=== PATIENT | female | born 1985 | race Caucasian/White ===

== ENCOUNTER 2020-08-26 14:29 | Inpatient (IN) ==
[2020-08-26] MEDS ORDERED: LACTATED RINGER'S 1,000 ML IV SCH ×3 (15:30→18:30)
--- NOTE | 2020-08-26 15:35 | History & Physical Report ---
Date of Service August 26, 2020 Assessment & Plan (1) premature rupture of membranes, onset of labor within 24 hours of rupture, third trimester: History of Present Illness Chief Complaint: SROM at 35.5 weeks Primary Care Provider: DAVE PCP 34 F P1001 at 35.5 weeks seen on L&D for SROM while at work today. Patient with history of prior for breech 2013. uncomplicated to date and she was planning a repeat . Allergies Allergy/AdvReac Type Severity Reaction Status Date / Time No Known Allergies Allergy Unverified 04/28/14 07:21 Home Medications Medication Instructions Recorded Confirmed Type LEVOTHYROXINE SODIUM (SYNTHROID) 100 mcg PO DAILY #0 tab 04/26/14 History Multivit/Min/Iron/Fol Ac/Pren 1 tab PO DAILY #0 tab 04/26/14 History ( Vitamin) Ibuprofen 600 mg PO Q4H PRN #30 tab 04/29/14 Rx Patient History Medical History Hypothyroid Surgical History Previous section Social History Smoking Status: Never smoker Hx Alcohol Use: No Hx Substance Use: No marital status: Feels Safe at Home: Yes Safety Concerns: Feels Safe At This Time OB History prior Dr. Maravilla 2013 Review of Systems All systems reviewed & are unremarkable except as noted in HPI & below Physical Exam Constitutional: WD/WN, vitals as above well developed and comfortable Eyes: PERRL, conjunctivae normal, anicteric sclerae Respiratory: normal respiratory effort, lungs clear to auscultation Cardiovascular: RRR, no murmur, no edema Rate/Rhythm: regular rate Gastrointestinal (Abdomen): Inspection/Auscultation: abdomen normal to inspection and + abdominal surgical scar Musculoskeletal: Head/Neck/Chest: normocephalic Gait: normal gait Neurologic: patellar DTR's 2+ bilat, sensation intact Psychiatric: A+Ox3, euthymic affect Genitourinary: normal external appearance Speculum/Bimanual Exam: + uterus enlarged OB Exam Abdomen: + fundal height (term and non-tender) and + heart tones Manual OB Exam: + cervical dilation fingertip, + cervical effacement 50%, + station high and + amniotic fluid clear, nitrazine positive and ferning present OB Exam Monitor Tracing: + external FHT monitor used, + external uterine monitor used, + category I and + normal FHT variability Sterile speculum done Results & Data ([facility]) Vital Signs (Past 12 Hours) Vital Signs Temp Pulse Resp BP 08/26/20 14:42 36.6 C 75 20 134/96 08/26/20 14:37 75 134/96 Code Status & VTE Plan VTE Prophylaxis Plan VTE Prophylaxis will be ordered: No
[2020-08-26] MEDS ORDERED: ONDANSETRON INJ 2 MG/ML 2 ML VIAL ONE ×2 (15:51→17:09)
[2020-08-26] MEDS ORDERED: OXYTOCIN 10 UNITS/ML VIAL ONE ×2 (15:51→16:29)
[2020-08-26] MEDS ORDERED: MoRPHine SULFATE PF 1 MG/ML 10 ML AMP/VIAL ONE (15:51)
[2020-08-26] MEDS ORDERED: PHENYLEPHRINE 100MCG/ML 5ML SYR ONE (15:51)
[2020-08-26] MEDS ORDERED: ePHEDrine sulfate 50 MG/ML SYR ONE (15:51)
[2020-08-26] MEDS ORDERED: MoRPHine SULFATE PF 1 MG/ML 10 ML AMP/VIAL INT SPINAL ONE (15:51)
[2020-08-26 15:52] LABS: Basophils # (auto) 0.01 K/uL (0-0.2); Basophils % (auto) 0.1 %; Eosinophils # (auto) 0.14 K/uL (0-0.5); Eosinophils % (auto) 1.4 %; Hematocrit (blood only) 32.9 % (37-47); Hemoglobin 11.5 g/dL (12.0-16.0); Immature Granulocytes # (auto) 0.02 K/uL (0.00-0.02); Immature Granulocytes % (auto) 0.2 %; Lymphocytes # (auto) 1.68 K/uL (1.2-3.4); Lymphocytes % (auto) 16.5 %; Mean Corpuscular Hemoglobin 31.9 pg (25-34); Mean Corpuscular Volume 91.4 fL (80-100); Monocytes # (auto) 0.66 K/uL (0.11-0.59); Monocytes % (auto) 6.5 %; Neutrophils % (auto) 75.3 %; Platelet Count 260 K/uL (130-400); RDW Coefficient of Variation 13.5 % (11.5-14.5); RDW Standard Deviation 44.3 fL (36.4-46.3); White Blood Count 10.21 K/uL (4.8-10.8)
--- NOTE | 2020-08-26 16:08 | Anesthesiology Consultation ---
Date of Service August 26, 2020 Assessment & Plan (1) Encounter for pre-operative examination: Chart Review Chart Review: Acceptable Risk for Surgery and Patient NOT seen in Pre Admission Testing Consults Requested none ASA ASA2 Proposed Anesthesia Risk / Benefits Reviewed With: PT / POA / Parent / Guardian, Accepts Plan and Informed Consent Obtained History Surgery Operation Date: 08/26/20 15:35 Proposed Procedures p Section in LD - Justen Medina MD Height/Weight Height: 5 ft 8 in Weight: 100.698 kg Allergies Allergy/AdvReac Type Severity Reaction Status Date / Time No Known Allergies Allergy Unverified 04/28/14 07:21 Medications Home Medications Medication Instructions Recorded Confirmed Last Taken LEVOTHYROXINE SODIUM (SYNTHROID) 100 mcg PO DAILY #0 tab 04/26/14 Unknown Multivit/Min/Iron/Fol Ac/Pren 1 tab PO DAILY #0 tab 04/26/14 Unknown ( Vitamin) Ibuprofen 600 mg PO Q4H PRN #30 tab 04/29/14 Unknown NPO Date Last Intake of Fluids: 08/26/20 Time Last Intake of Fluids: 13:30 Date Last Intake of Solids: 08/26/20 Time Last Intake of Solids: 13:30 Past Medical History Medical History Hypothyroid Exercise / Class Metabolic Activity II 4-5 Yardwork/Stairs/Walk up hill Past Surgical History Surgical History Previous section Past Anesthesia History No Hx of Anesthesia Complications and No Family Hx of Anesthesia Complications History of PONV No Hx of PONV and No Hx of Motion Sickness Social History Smoking Status: Never smoker Hx Alcohol Use: No Hx Substance Use: No substance use type: does not use Physical Exam Vital Signs Last Vital Signs Temp 36.6 C 08/26/20 14:42 Pulse 75 08/26/20 14:42 Resp 20 08/26/20 14:42 BP 134/96 08/26/20 14:42 ENMT Mouth: no dentition abnormality Thyromental Distance: > or= 3.5 Finger Breadths Mallampati Class: II Neck normal visual inspection Respiratory normal respiratory effort Auscultation: lungs clear to auscultation bilaterally Cardiovascular Rate/Rhythm: regular rate and regular rhythm Psychiatric Orientation: alert Testing Laboratory Results 08/26/20 15:41
[2020-08-26] MEDS ORDERED: fentaNYL citrate 100 MCG/2 ML VIAL ONE (16:29)
[2020-08-26] MEDS ORDERED: KETOROLAC 30 MG/ML VIAL ONE (16:29)
[2020-08-26] MEDS ORDERED: CITRIC ACID/SODIUM CITRATE 15 ML UDC ONE (16:34)
--- NOTE | 2020-08-26 18:24 | Post Operative Brief Note ---
Immediate Post Op Note v1 Date of Surgery August 26, 2020 Pre & Post Diagnosis Operation Date: 08/26/20 15:35 Pre-Op Diagnosis: spontaneous rupture of membranes. 35.5 weeks gestation. Repeat section. In labor. Post-Op Diagnosis: Same. I identified the patient and participated in the time-out.: Yes Procedure Operation Date: 08/26/20 15:35 Actual Procedures p Section in LD (OR#3) with of live female at 1725 - Justen Medina MD Surgeon Justen Medina MD Medical Surgical Tech RADHA Buck Estimated Blood Loss 400 Findings Consistent with Post-Op Diagnosis live male Apgars 8/9 weight pending Fluids 2000 ml. Specimens placenta Drains Alfaro Catheter Anesthesia Type Spinal Complications none Disposition Accompanied Patient To Recovery: Yes Disposition: L&D Overlapping Procedure I was present for: the critical portions of procedure. I was immediately available: during the entire case. Back up surgeon: was not required during procedure.
[2020-08-26] MEDS ORDERED: diphenhydrAMINE Capsule 25 MG CAP PO PRN (18:30)
[2020-08-26] MEDS ORDERED: SENNA 8.6 MG TAB PO PRN (18:30)
[2020-08-26] MEDS ORDERED: SUPERCREAM 0.870% 15 GM JAR EXT PRN (18:30)
[2020-08-26] MEDS ORDERED: diphenhydrAMINE 50 MG/ML VIAL IV PRN (18:30)
[2020-08-26] MEDS ORDERED: PROMETHAZINE HCL 25 MG in SODIUM CHLORIDE 0.9% 50 ML IV PRN (18:30)
[2020-08-26] MEDS ORDERED: BENZOCAINE 20% AER SPR 82.5 GM CAN EXT PRN (18:30)
[2020-08-26] MEDS ORDERED: HYDROCORTISONE ACETATE 25 MG SUPP PR PRN (18:30)
[2020-08-26] MEDS ORDERED: DIPHTHERIA/TETANUS/PERTUSSIS 0.5 ML SYR/VIAL IM ONE (18:30)
[2020-08-26] MEDS ORDERED: ONDANSETRON INJ 2 MG/ML 2 ML VIAL IV PRN (18:30)
[2020-08-26] MEDS ORDERED: MAGNESIUM HYDROXIDE SUSP 30 ML UDC PO PRN (18:30)
--- NOTE | 2020-08-26 18:35 | Anesthesiology Progress Note ---
Date of Service August 26, 2020 Anesthesia Post Procedure Vital Signs Vital Signs: Temp Pulse Resp BP Pulse Ox 08/26/20 18:27 76 99 08/26/20 18:25 101 H 94 08/26/20 18:22 73 113/67 100 08/26/20 18:20 18 08/26/20 18:17 73 99 08/26/20 18:13 82 108/64 08/26/20 18:12 75 99 08/26/20 18:10 36.5 C 20 08/26/20 14:42 36.6 C 75 20 134/96 08/26/20 14:37 75 134/96 Transfer of Care Handoff Completed per policy Notes Mental Status: alert / awake / arousable Nausea / Vomiting: adequately controlled Pain: adequately controlled Airway Patency, RR, SpO2: stable & adequate BP & HR: stable & adequate Hydration State: stable & adequate Neuraxial Anesthesia: was administered and sensory block is resolving Anesthetic Complications: no major complications apparent
[2020-08-26] MEDS: OXYTOCIN 30 UNITS in LACTATED RINGER'S 1,000 ML IV SCH (19:04)
--- NOTE | 2020-08-26 20:23 | Operative Report (OR) ---
DATE OF OPERATION: 08/26/2020 PREOPERATIVE DIAGNOSES: rupture of membranes at 35 weeks and 5 days with repeat section, in labor. POSTOPERATIVE DIAGNOSES: rupture of membranes at 35 weeks and 5 days with repeat section, in labor. PROCEDURE: Repeat section, low segment, transverse. SURGEON: Justen Medina MD. MINE SAFETY ENGINEER: RADHA Fry. ANESTHESIA: Spinal with Duramorph. CLINICAL HISTORY: The patient is a 34-year-old female, para 1-0-0-1, at 35.5 weeks who ruptured membranes with clear fluid confirmed by Nitrazine and ferning. section was then planned and then scheduled. Consents were signed and timeout was called prior to the start of the procedure. DESCRIPTION OF PROCEDURE: Under satisfactory spinal anesthesia, the patient was prepped and draped in the usual sterile fashion. A low Pfannenstiel incision through a prior scar was then made, carrying this down into the abdominal layers in successive layers without difficulty. Upon entering into the lower uterine segment, pickups with teeth and Metzenbaums were used to develop a bladder flap. A low segment transverse incision over the lower uterine segment was made. The incision was nicked. Amniotic fluid was noted to be clear. The incision was widened in the AP diameter. The was then delivered with the aid of fundal pressure from the vertex presentation without difficulty. The cord was doubly clamped and cut after a 1-minute delay delivering a male, Apgars 8 and 9, weight pending. Cord blood was obtained. Placenta then delivered spontaneously and intact. Uterus was then exteriorized. Ring forceps were then placed on both angles in the inferior margin. Another ring used to dilate the cervix. Uterus was closed in a double layer closure starting with 0 Vicryl suture in a continuous interlocking fashion followed by second imbricating suture. Uterus was firm. The initial sponge, needle, and instrument count were found to be correct. The tubes and ovaries bilaterally were found to be within normal limits. There was a small posterior 1 cm fibroid on the left hand side. The uterus being placed back into the normal anatomical position, was firm. The lower uterine incision was then inspected and found to be intact with no bleeding. The fascia was then reapproximated from both ends using 0 Vicryl suture in a continuous fashion. Subcuticular space was irrigated. Bleeders were cauterized. Subcuticular layer was closed with 3-0 plain suture. The incision was then irrigated and the skin was then closed with rolando. Clear urine was noted from the Alfaro 500 mL. EBL 400 mL. Total fluids 2000 mL. The sponge, needle and instrument counts being correct, the patient was then placed supine on a stretcher. She was taken to recovery room in stable condition. I was present for the entire case. No backup surgeon was needed. I attest to the content of the Intraoperative Record and any orders documented therein. Any exception s are noted below.
[2020-08-26] MEDS: SIMETHICONE 80 MG CHEW PO SCH (22:01)
[2020-08-26] MEDS: DOCUSATE SODIUM 100 MG CAP PO SCH (22:08)
[2020-08-27] MEDS: OXYTOCIN 30 UNITS in LACTATED RINGER'S 1,000 ML IV SCH (02:55)
[2020-08-27] MEDS ORDERED: ceFAZolin 2000MG 2,000 MG/15 ML SYR IV SCH (06:00)
[2020-08-27] MEDS ORDERED: CITRIC ACID/SODIUM CITRATE 15 ML UDC PO SCH (06:00)
[2020-08-27] MEDS: LEVOTHYROXINE SODIUM 137 MCG TABLET PO SCH (06:22)
[2020-08-27 06:48] LABS: Basophils # (auto) 0.02 K/uL (0-0.2); Basophils % (auto) 0.2 %; Eosinophils # (auto) 0.14 K/uL (0-0.5); Eosinophils % (auto) 1.3 %; Hematocrit (blood only) 32.4 % (37-47); Hemoglobin 10.8 g/dL (12.0-16.0); Immature Granulocytes # (auto) 0.02 K/uL (0.00-0.02); Immature Granulocytes % (auto) 0.2 %; Lymphocytes # (auto) 1.43 K/uL (1.2-3.4); Lymphocytes % (auto) 13.5 %; Mean Corpuscular Hgb Conc 33.3 g/dL (32-36); Mean Corpuscular Volume 93.1 fL (80-100); Mean Platelet Volume 9.8 fL (7.4-10.4); Monocytes # (auto) 0.52 K/uL (0.11-0.59); Monocytes % (auto) 4.9 %; Neutrophils # (auto) 8.43 K/uL (1.4-6.5); Neutrophils % (auto) 79.9 %; Platelet Count 208 K/uL (130-400); RDW Coefficient of Variation 13.6 % (11.5-14.5); RDW Standard Deviation 45.2 fL (36.4-46.3); Red Blood Count 3.48 M/uL (4.2-5.4); White Blood Count 10.56 K/uL (4.8-10.8)
--- NOTE | 2020-08-27 07:49 | Obstetrical Progress Note ---
Date of Service August 27, 2020 Assessment & Plan Admission and Anticipated Discharge Date Admission Date: August 26, 2020 Subjective Patient is seen and examined. She feels well, no complaints. Pain is under control with meds. Not OOB yet No dizziness in bed Voiding without difficulty Tolerating regular diet with out N&V Flatus + BM none Bleeding is minimal No fever/ chills/ CP/ SOB/ N&V/ Leg pain Plans to breast feed, baby is in nursery Vital Signs Temp Pulse Pulse Resp BP BP Pulse Ox 08/27/20 06:00 16 99 08/27/20 05:00 18 97 08/27/20 04:00 16 98 08/27/20 03:15 36.6 C 78 18 135/87 98 08/27/20 03:00 16 98 08/27/20 02:00 16 97 08/27/20 01:30 18 100 08/27/20 01:00 16 98 08/27/20 00:00 16 100 08/26/20 23:18 36.6 C 74 18 123/82 08/26/20 23:00 16 99 08/26/20 22:00 16 99 08/26/20 21:00 36.6 C 75 18 126/87 97 08/26/20 20:49 77 98 08/26/20 20:44 73 98 08/26/20 20:43 75 126/87 08/26/20 20:39 62 98 08/26/20 20:34 72 99 08/26/20 20:29 69 97 08/26/20 20:24 68 100 08/26/20 20:19 72 100 08/26/20 20:11 36.6 C 69 18 124/86 08/26/20 20:07 64 100 08/26/20 20:02 68 100 08/26/20 20:00 66 93 08/26/20 19:57 73 99 08/26/20 19:52 75 100 Lab Results 08/26/20 08/26/20 08/26/20 Range/Units 15:25 15:25 15:41 WBC 10.21 (4.8-10.8) K/uL RBC 3.60 L (4.2-5.4) M/uL Hgb 11.5 L (12.0-16.0) g/dL Hct 32.9 L (37-47) % MCV 91.4 (80-100) fL MCH 31.9 (25-34) pg MCHC 35.0 (32-36) g/dL RDW Std Deviation 44.3 (36.4-46.3) fL RDW Coeff of Nura 13.5 (11.5-14.5) % Plt Count 260 (130-400) K/uL MPV 10.0 (7.4-10.4) fL Immature Gran % (Auto) 0.2 % Neut % (Auto) 75.3 % Lymph % (Auto) 16.5 % [place] % (Auto) 6.5 % Eos % (Auto) 1.4 % Baso % (Auto) 0.1 % Neut # (Auto) 7.70 H (1.4-6.5) K/uL Lymph # (Auto) 1.68 (1.2-3.4) K/uL [place] # (Auto) 0.66 H (0.11-0.59) K/uL Eos # (Auto) 0.14 (0-0.5) K/uL Baso # (Auto) 0.01 (0-0.2) K/uL Immature Gran # (Auto) 0.02 (0.00-0.02) K/uL COVID-19 Eval Order [facility] SARS-CoV-2, RNA, NAAT NEGATIVE (NEGATIVE) Intake & Output 08/26/20 08/27/20 08/27/20 22:59 06:59 14:59 Intake Total 1999. 981.25 / 2981.25 Output Total 1325 / 1950 625 / 1950 Balance 675 / 1031.25 356.25 / 1031.25 Weight 100.698 kg Intake: IV 981.25 / 981.25 Pitocin 30 Units In Lr 1,000 ml 981.25 / 981.25 @ 125 mls/hr IV .Q8H2M [facility] Rx# :[id number] IV Perioperative 1999 Output: Estimated Blood Loss 400 / 400 Urine Amount (Catheter) 925 / 1550 625 / 1550 Alfaro/Indwelling 925 / 1550 625 / 1550 08/27/20 Range/Units 06:29 WBC 10.56 (4.8-10.8) K/uL RBC 3.48 L (4.2-5.4) M/uL Hgb 10.8 L (12.0-16.0) g/dL Hct 32.4 L (37-47) % MCV 93.1 (80-100) fL MCH 31.0 (25-34) pg MCHC 33.3 (32-36) g/dL RDW Std Deviation 45.2 (36.4-46.3) fL RDW Coeff of Nura 13.6 (11.5-14.5) % Plt Count 208 (130-400) K/uL MPV 9.8 (7.4-10.4) fL Immature Gran % (Auto) 0.2 % Neut % (Auto) 79.9 % Lymph % (Auto) 13.5 % [place] % (Auto) 4.9 % Eos % (Auto) 1.3 % Baso % (Auto) 0.2 % Neut # (Auto) 8.43 H (1.4-6.5) K/uL Lymph # (Auto) 1.43 (1.2-3.4) K/uL [place] # (Auto) 0.52 (0.11-0.59) K/uL Eos # (Auto) 0.14 (0-0.5) K/uL Baso # (Auto) 0.02 (0-0.2) K/uL Immature Gran # (Auto) 0.02 (0.00-0.02) K/uL COVID-19 Eval Order SARS-CoV-2, RNA, NAAT (NEGATIVE) PE: General: Alert, orientedx3, NAD CVS: S1S2 RRR Lungs; CTAB Abd: soft, NT, ND, BS+, fundus firm, below Umbilicus Incision/ Dressing: Clean, dry, intact Perineum intact, Lochia rubra minimal Ext; NT, no edema AP: 34 yo s/p C Section, pod# 1 VSS Afebrile doing well H*H stable Continue routine postop care Encourage ambulation, PO intake All questions were answered Results & Data ([facility]) Vital Signs (Past 12 Hours) Vital Signs Temp Pulse Pulse Resp BP BP Pulse Ox 08/27/20 06:00 16 99 08/27/20 05:00 18 97 08/27/20 04:00 16 98 08/27/20 03:15 36.6 C 78 18 135/87 98 08/27/20 03:00 16 98 08/27/20 02:00 16 97 08/27/20 01:30 18 100 08/27/20 01:00 16 98 08/27/20 00:00 16 100 08/26/20 23:18 36.6 C 74 18 123/82 08/26/20 23:00 16 99 08/26/20 22:00 16 99 08/26/20 21:00 36.6 C 75 18 126/87 97 08/26/20 20:49 77 98 08/26/20 20:44 73 98 08/26/20 20:43 75 126/87 08/26/20 20:39 62 98 08/26/20 20:34 72 99 08/26/20 20:29 69 97 08/26/20 20:24 68 100 08/26/20 20:19 72 100 08/26/20 20:11 36.6 C 69 18 124/86 08/26/20 20:07 64 100 08/26/20 20:02 68 100 08/26/20 20:00 66 93 08/26/20 19:57 73 99 08/26/20 19:52 75 100 08/26/20 19:47 70 100
[2020-08-27] MEDS: FERROUS SULFATE 325 MG TAB PO SCH (08:17)
[2020-08-27] MEDS: DOCUSATE SODIUM 100 MG CAP PO SCH ×2 (08:18→20:43)
[2020-08-27] MEDS: PRENATAL VITAMIN 1 TAB PO SCH (08:18)
[2020-08-27] MEDS: SIMETHICONE 80 MG CHEW PO SCH ×4 (08:18→20:43)
[2020-08-27] MEDS ORDERED: LACTATED RINGER'S 500 ML IV PRN (08:55)
[2020-08-27] MEDS ORDERED: ePHEDrine sulfate 50 MG/ML AMP IV PRN (08:55)
[2020-08-27] MEDS ORDERED: diphenhydrAMINE 50 MG/ML VIAL IV PRN (08:55)
[2020-08-27] MEDS ORDERED: NALOXONE HCL 1 MG in SODIUM CHLORIDE 0.9% 1000ML 1,000 ML IV PRN (08:55)
[2020-08-27] MEDS ORDERED: NALOXONE HCL 0.08 MG in SYRINGE 1.8 ML IV PRN (08:55)
[2020-08-27] MEDS ORDERED: NALOXONE HCL 0.4 MG/1 ML VIAL/CARP IV PRN (08:55)
[2020-08-27] MEDS ORDERED: DC INTRASPINAL MORPHINE SCH (09:00)
[2020-08-27] MEDS ORDERED: SODIUM CHLORIDE 0.9% 1000ML 1,000 ML IV SCH (09:00)
[2020-08-27] MEDS ORDERED: NO NARCOTICS OR SEDATIVES SCH (09:00)
[2020-08-27] MEDS ORDERED: IBUPROFEN 600 MG TAB PO PRN (09:02)
[2020-08-27] MEDS ORDERED: oxyCODONE/ACETAMINOPHEN 5mg/325mg TAB PO PRN (11:31)
[2020-08-27] MEDS ORDERED: bisacodyL 5 MG TABEC PO SCH (20:00)
[2020-08-27] MEDS: IBUPROFEN 600 MG TAB PO PRN (21:09)
[2020-08-28] MEDS: IBUPROFEN 600 MG TAB PO PRN ×2 (06:20→15:52)
[2020-08-28] MEDS: LEVOTHYROXINE SODIUM 137 MCG TABLET PO SCH (06:20)
[2020-08-28 06:44] LABS: Hematocrit (blood only) 33.5 % (37-47); Hemoglobin 11.2 g/dL (12.0-16.0)
[2020-08-28] MEDS: PRENATAL VITAMIN 1 TAB PO SCH (08:14)
[2020-08-28] MEDS: SIMETHICONE 80 MG CHEW PO SCH ×4 (08:14→20:32)
[2020-08-28] MEDS: DOCUSATE SODIUM 100 MG CAP PO SCH ×2 (08:14→20:32)
[2020-08-28] MEDS: FERROUS SULFATE 325 MG TAB PO SCH (08:14)
--- NOTE | 2020-08-28 08:51 | Surgery Progress Note ---
Date of Service August 28, 2020 Assessment & Plan Admission and Anticipated Discharge Date Admission Date: August 26, 2020 Subjective POD#2 doing well out of bed tolerating diet passing gas minimal pain Physical Exam Constitutional: WD/WN, vitals as above comfortable abdomen soft and non- tender incision c/d/i no edema neg Virgil's tent d/c in AM Results & Data ([facility]) Vital Signs (Past 12 Hours) Vital Signs Temp Pulse Resp BP Pulse Ox 08/28/20 02:10 36.5 C 72 16 106/70 98 Laboratory Results 08/26/20 08/26/20 08/26/20 15:25 15:25 15:41 WBC 10.21 RBC 3.60 L Hgb 11.5 L Hct 32.9 L MCV 91.4 MCH 31.9 MCHC 35.0 RDW Std Deviation 44.3 RDW Coeff of Nura 13.5 Plt Count 260 MPV 10.0 Immature Gran % (Auto) 0.2 Neut % (Auto) 75.3 Lymph % (Auto) 16.5 [place] % (Auto) 6.5 Eos % (Auto) 1.4 Baso % (Auto) 0.1 Neut # (Auto) 7.70 H Lymph # (Auto) 1.68 [place] # (Auto) 0.66 H Eos # (Auto) 0.14 Baso # (Auto) 0.01 Immature Gran # (Auto) 0.02 COVID-19 Eval Order Covid19 [facility] SARS-CoV-2, RNA, NAAT NEGATIVE 08/27/20 08/28/20 06:29 06:26 WBC 10.56 RBC 3.48 L Hgb 10.8 L 11.2 L Hct 32.4 L 33.5 L MCV 93.1 MCH 31.0 MCHC 33.3 RDW Std Deviation 45.2 RDW Coeff of Nura 13.6 Plt Count 208 MPV 9.8 Immature Gran % (Auto) 0.2 Neut % (Auto) 79.9 Lymph % (Auto) 13.5 [place] % (Auto) 4.9 Eos % (Auto) 1.3 Baso % (Auto) 0.2 Neut # (Auto) 8.43 H Lymph # (Auto) 1.43 [place] # (Auto) 0.52 Eos # (Auto) 0.14 Baso # (Auto) 0.02 Immature Gran # (Auto) 0.02 COVID-19 Eval Order SARS-CoV-2, RNA, NAAT
[2020-08-28] MEDS ORDERED: bisacodyL 10 MG SUPP PR PRN (18:21)
[2020-08-29] MEDS: IBUPROFEN 600 MG TAB PO PRN ×4 (04:20→21:43)
--- NOTE | 2020-08-29 05:42 | Surgery Progress Note ---
Date of Service August 29, 2020 Assessment & Plan Admission and Anticipated Discharge Date Admission Date: August 26, 2020 Subjective PPD#3 doing well baby staying patient plans to go to [facility] tolerating diet out of bed +BM Physical Exam Constitutional: WD/WN, vitals as above comfortable incision c/d/i abdomen soft and non-tender fundus firm no edema neg Virgil's Results & Data ([facility]) Vital Signs (Past 12 Hours) Vital Signs Temp Pulse Resp BP Pulse Ox 08/28/20 23:55 36.7 C 79 20 130/82 97 08/28/20 20:25 36.4 C L 78 18 125/81 99 Laboratory Results Laboratory Results - last 48 hr 08/27/20 08/28/20 06:29 06:26 WBC 10.56 RBC 3.48 L Hgb 10.8 L 11.2 L Hct 32.4 L 33.5 L MCV 93.1 MCH 31.0 MCHC 33.3 RDW Std Deviation 45.2 RDW Coeff of Nura 13.6 Plt Count 208 MPV 9.8 Immature Gran % (Auto) 0.2 Neut % (Auto) 79.9 Lymph % (Auto) 13.5 [place] % (Auto) 4.9 Eos % (Auto) 1.3 Baso % (Auto) 0.2 Neut # (Auto) 8.43 H Lymph # (Auto) 1.43 [place] # (Auto) 0.52 Eos # (Auto) 0.14 Baso # (Auto) 0.02 Immature Gran # (Auto) 0.02
[2020-08-29] MEDS: LEVOTHYROXINE SODIUM 137 MCG TABLET PO SCH (06:22)
[2020-08-29] MEDS: FERROUS SULFATE 325 MG TAB PO SCH (08:20)
[2020-08-29] MEDS: PRENATAL VITAMIN 1 TAB PO SCH (08:20)
[2020-08-29] MEDS: SIMETHICONE 80 MG CHEW PO SCH ×4 (08:20→20:46)
[2020-08-29] MEDS: DOCUSATE SODIUM 100 MG CAP PO SCH ×2 (08:20→20:46)
[2020-08-30] MEDS: IBUPROFEN 600 MG TAB PO PRN (02:54)
[2020-08-30] MEDS: LEVOTHYROXINE SODIUM 137 MCG TABLET PO SCH (06:00)
[2020-08-30] MEDS: DOCUSATE SODIUM 100 MG CAP PO SCH (07:40)
[2020-08-30] MEDS: PRENATAL VITAMIN 1 TAB PO SCH (07:40)
[2020-08-30] MEDS: FERROUS SULFATE 325 MG TAB PO SCH (07:41)
[2020-08-30] MEDS: SIMETHICONE 80 MG CHEW PO SCH (07:41)
--- NOTE | 2020-08-30 08:09 | Obstetrical Progress Note ---
Date of Service August 30, 2020 Assessment & Plan Admission and Anticipated Discharge Date Admission Date: August 26, 2020 Subjective Patient is seen and examined. She feels well, no complaints. Pain is under control with oral meds. Ambulating without dizziness Voiding without difficulty Tolerating regular diet with out N&V Flatus + BM + Bleeding is minimal No fever/ chills/ CP/ SOB/ N&V/ Leg pain Breast feeding without problems Baby is in nursery. Vital Signs Temp Pulse Resp BP Pulse Ox 08/29/20 23:05 36.4 C L 69 16 123/82 98 08/29/20 15:10 36.6 C 72 16 127/86 100 Lab Results 08/26/20 08/26/20 08/26/20 Range/Units 15:25 15:25 15:41 WBC 10.21 (4.8-10.8) K/uL RBC 3.60 L (4.2-5.4) M/uL Hgb 11.5 L (12.0-16.0) g/dL Hct 32.9 L (37-47) % MCV 91.4 (80-100) fL MCH 31.9 (25-34) pg MCHC 35.0 (32-36) g/dL RDW Std Deviation 44.3 (36.4-46.3) fL RDW Coeff of Nura 13.5 (11.5-14.5) % Plt Count 260 (130-400) K/uL MPV 10.0 (7.4-10.4) fL Immature Gran % (Auto) 0.2 % Neut % (Auto) 75.3 % Lymph % (Auto) 16.5 % [place] % (Auto) 6.5 % Eos % (Auto) 1.4 % Baso % (Auto) 0.1 % Neut # (Auto) 7.70 H (1.4-6.5) K/uL Lymph # (Auto) 1.68 (1.2-3.4) K/uL [place] # (Auto) 0.66 H (0.11-0.59) K/uL Eos # (Auto) 0.14 (0-0.5) K/uL Baso # (Auto) 0.01 (0-0.2) K/uL Immature Gran # (Auto) 0.02 (0.00-0.02) K/uL [facility], RNA, NAAT NEGATIVE (NEGATIVE) 08/27/20 08/28/20 Range/Units 06:29 06:26 WBC 10.56 (4.8-10.8) K/uL RBC 3.48 L (4.2-5.4) M/uL Hgb 10.8 L 11.2 L (12.0-16.0) g/dL Hct 32.4 L 33.5 L (37-47) % MCV 93.1 (80-100) fL MCH 31.0 (25-34) pg MCHC 33.3 (32-36) g/dL RDW Std Deviation 45.2 (36.4-46.3) fL RDW Coeff of Nura 13.6 (11.5-14.5) % Plt Count 208 (130-400) K/uL MPV 9.8 (7.4-10.4) fL Immature Gran % (Auto) 0.2 % Neut % (Auto) 79.9 % Lymph % (Auto) 13.5 % [place] % (Auto) 4.9 % Eos % (Auto) 1.3 % Baso % (Auto) 0.2 % Neut # (Auto) 8.43 H (1.4-6.5) K/uL Lymph # (Auto) 1.43 (1.2-3.4) K/uL [place] # (Auto) 0.52 (0.11-0.59) K/uL Eos # (Auto) 0.14 (0-0.5) K/uL Baso # (Auto) 0.02 (0-0.2) K/uL Immature Gran # (Auto) 0.02 (0.00-0.02) K/uL COVID-19 Eval Order SARS-CoV-2, RNA, NAAT (NEGATIVE) PE: General: Alert, orientedx3, NAD CVS: S1S2 RRR Lungs; CTAB Abd: soft, NT, ND, BS+, fundus firm, below Umbilicus Incision/ rolando: Clean, dry, intact Perineum intact, Lochia rubra minimal Ext; NT, no edema AP: 34 yo s/p C Section, pod# 4 VSS Afebrile doing well Continue routine postop care Encourage ambulation, PO intake All questions were answered D/C nesting, f/u in office Results & Data ([facility] [place]) Vital Signs (Past 12 Hours) Vital Signs Temp Pulse Resp BP Pulse Ox 08/29/20 23:05 36.4 C L 69 16 123/82 98
--- NOTE | 2020-09-07 14:04 | Discharge Summary (DS) ---
REASON FOR ADMISSION AND HOSPITAL COURSE: The patient was admitted on 08/26/2020 with rupture of membranes at 35 weeks and 5 days with a repeat that was in labor. She underwent a repeat section, low segment, transverse under spinal anesthesia, delivering a live male. Apgars were 8 and 9. weight was pending. Hospital course was unremarkable. The patient was subsequently discharged on 08/30/2020 in stable condition. Home going instructions were given. Condition on discharge was stable. Regular diet on discharge. Followup will be in the office in 1 week. Medications on discharge include Motrin and Percocet.
== END 2020-08-30 19:05 | disposition home or self-care (01) | DRG 788 ==
LOC: OPB 14:29 → 4S1 14:34 → 4S2 21:01

== ENCOUNTER 2022-02-22 13:58 | Inpatient (IN) ==
--- NOTE | 2022-02-22 15:55 | History & Physical Report ---
Date of Service February 22, 2022 Assessment & Plan (1) Sterilization: Plan Elective repeat with bilateral salpingectomy History of Present Illness Chief Complaint: onset of labor Primary Care Provider: DAVE PCP 36 F [id number] at 35.1 weeks with onset of contractions starting this AM. She is 4/100/-1/intact with bulging membranes. She has 2 prior C-sections and would like another elective repeat with tubal ligation. Allergies Allergy/AdvReac Type Severity Reaction Status Date / Time No Known Allergies Allergy Unverified 08/26/20 18:46 Home Medications Medication Instructions Recorded Confirmed Type levothyroxine 137 mcg tablet 150 mcg PO DAILY 08/26/20 02/22/22 History prenat.vits,sherrill,[id number] 1 tab PO DAILY 08/26/20 02/22/22 History Patient History Medical History (Updated 02/22/22 @ 15:55 by Justen Medina MD) Hypothyroid premature rupture of membranes, onset of labor within 24 hours of rupture, third trimester Surgical History (Updated 02/22/22 @ 15:54 by Justen Medina MD) Previous section [place] teeth extracted Social History Smoking Status: Never smoker Second Hand Exposure: No; Hx Alcohol Use: No Hx Substance Use: No Preferred Language: Swiss Communication Ability: Effective Building Drafter Required: No Beliefs That Will Affect Care: None marital status: Current Living Situation: Family Other Information That Helps Us Care for You: No Feels Safe at Home: Yes Assistive Devices: None 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 Review of Systems All systems reviewed & are unremarkable except as noted in HPI & below Physical Exam Constitutional: WD/WN, vitals as above Eyes: PERRL, conjunctivae normal, anicteric sclerae Respiratory: normal respiratory effort, lungs clear to auscultation Cardiovascular: RRR, no murmur, no edema Gastrointestinal (Abdomen): normal bowel sounds, soft, nontender, no hepatosplenomegaly Musculoskeletal: Extremities: extremities normal to inspection Skin: no rashes, warm and dry Neurologic: patellar DTR's 2+ bilat, sensation intact Psychiatric: A+Ox3, euthymic affect Genitourinary: no vaginal lesions, no adnexal mass OB Exam Abdomen: + fundal height, + heart tones and + vertex Manual OB Exam: + cervical dilation 4 cm, + cervical effacement 100% and + station -1 OB Exam Monitor Tracing: + external FHT monitor used, + external uterine monitor used and + category I contractions every 3-4 minutes Results & Data ([facility]) Vital Signs (Past 12 Hours) Vital Signs Temp Pulse Resp BP 02/22/22 14:23 83 133/82 02/22/22 14:19 36.7 C 83 18 133/82 Laboratory Results Laboratory Results - last 24 hr 02/22/22 15:34 SARS-CoV-2, RNA, NAAT Pending Code Status & VTE Plan VTE Prophylaxis Plan VTE Prophylaxis will be ordered: No Monitoring External Monitor Cat 1
[2022-02-22] MEDS ORDERED: LACTATED RINGER'S 1,000 ML IV SCH ×2 (16:00→18:45)
[2022-02-22 16:20] LABS: Basophils # (auto) 0.03 K/uL (0-0.2); Basophils % (auto) 0.2 %; Eosinophils # (auto) 0.05 K/uL (0-0.50); Eosinophils % (auto) 0.4 %; Hemoglobin 11.8 g/dl (12.0-16.0); Immature Granulocytes # (auto) 0.05 K/uL (0.00-0.02); Immature Granulocytes % (auto) 0.4 %; Lymphocytes # (auto) 1.36 K/uL (1.2-3.4); Lymphocytes % (auto) 9.8 %; Mean Corpuscular Hemoglobin 30.6 pg (25.0-34.0); Mean Corpuscular Hgb Conc 33.7 g/dL (32.0-36.0); Mean Corpuscular Volume 90.9 fL (80.0-100.0); Mean Platelet Volume 9.7 fL (9.4-12.3); Monocytes # (auto) 0.67 K/uL (0.24-0.82); Monocytes % (auto) 4.8 %; Neutrophils # (auto) 11.74 K/uL (1.4-6.5); Neutrophils % (auto) 84.4 %; Platelet Count 259 K/uL (130-400); RDW Coefficient of Variation 13.7 % (11.5-14.5); RDW Standard Deviation 45.2 fL (36.4-46.3); Red Blood Count 3.85 M/uL (3.93-5.22)
[2022-02-22] MEDS ORDERED: MoRPHine SULFATE PF 1 MG/ML 10 ML AMP/VIAL ONE (16:28)
[2022-02-22] MEDS ORDERED: OXYTOCIN 10 UNITS/ML VIAL ONE (16:28)
[2022-02-22] MEDS ORDERED: fentaNYL citrate 100 MCG/2 ML VIAL ONE (16:28)
[2022-02-22] MEDS ORDERED: MoRPHine SULFATE PF 1 MG/ML 10 ML AMP/VIAL INT SPINAL ONE (16:45)
[2022-02-22] MEDS ORDERED: NALOXONE HCL 0.4 MG/1 ML VIAL/CARP IV PRN (16:45)
[2022-02-22] MEDS ORDERED: SODIUM CHLORIDE 0.9% 1000ML 1,000 ML IV SCH (16:45)
[2022-02-22] MEDS ORDERED: LACTATED RINGER'S 500 ML IV PRN (16:45)
[2022-02-22] MEDS ORDERED: NALBUPHINE HCL INJ 10 MG/ML AMP IV PRN (16:45)
[2022-02-22] MEDS ORDERED: NALOXONE HCL 0.08 MG in SYRINGE 1.8 ML IV PRN (16:45)
[2022-02-22] MEDS ORDERED: MoRPHine SULFATE 2 MG/ML CARP IV PRN (16:45)
[2022-02-22] MEDS ORDERED: ONDANSETRON INJ 2 MG/ML 2 ML VIAL IV PRN (16:45)
[2022-02-22] MEDS ORDERED: ePHEDrine sulfate 50 MG/ML AMP IV PRN (16:45)
[2022-02-22] MEDS ORDERED: NO NARCOTICS OR SEDATIVES SCH (16:45)
[2022-02-22] MEDS ORDERED: diphenhydrAMINE 50 MG/ML VIAL IV PRN (16:45)
[2022-02-22] MEDS ORDERED: KETOROLAC 30 MG/ML VIAL IV PRN (16:45)
[2022-02-22] MEDS ORDERED: DC INTRASPINAL MORPHINE SCH (16:45)
[2022-02-22] MEDS ORDERED: NALOXONE HCL 1 MG in SODIUM CHLORIDE 0.9% 1000ML 1,000 ML IV PRN (16:45)
--- NOTE | 2022-02-22 16:45 | Anesthesiology Consultation ---
Date of Service February 22, 2022 Assessment & Plan ASA ASA2 Proposed Anesthesia Anesthesia Type: Spinal Risk / Benefits Reviewed With: PT / POA / Parent / Guardian, Accepts Plan and Informed Consent Obtained History Surgery Operation Date: 02/22/22 16:20 Proposed Procedures p Section in LD - Justen Medina MD Height/Weight Height: 5 ft 8 in Weight: 101.605 kg Allergies Allergy/AdvReac Type Severity Reaction Status Date / Time No Known Allergies Allergy Unverified 08/26/20 18:46 Medications Home Medications Medication Instructions Recorded Confirmed Last Taken levothyroxine 137 mcg tablet 150 mcg PO DAILY 08/26/20 02/22/22 02/22/22 prenat.vits,sherrill,coa-hepm-pqeue 1 tab PO DAILY 08/26/20 02/22/22 02/21/22 NPO Date Last Intake of Fluids: 02/22/22 Time Last Intake of Fluids: 00:00 Date Last Intake of Solids: 02/22/22 Time Last Intake of Solids: 00:00 Past Medical History Medical History Hypothyroid premature rupture of membranes, onset of labor within 24 hours of rupture, third trimester Exercise / Class Metabolic Activity II 4-5 Yardwork/Stairs/Walk up hill Past Surgical History Surgical History Previous section [place] teeth extracted Past Anesthesia History No Hx of Anesthesia Complications and No Family Hx of Anesthesia Complications History of PONV No Hx of PONV and No Hx of Motion Sickness Social History Smoking Status: Never smoker Hx Alcohol Use: No Hx Substance Use: No substance use type: does not use Review of Systems denies fever/cough/ colds/ chest pain/ SOB/ WILLY denies WILLY Physical Exam Vital Signs Last Vital Signs Temp 36.7 C 02/22/22 14:19 Pulse 83 02/22/22 14:23 Resp 18 02/22/22 14:19 BP 133/82 02/22/22 14:23 ENMT Mouth: no TMJ abnormality and no dentition abnormality Thyromental Distance: > or= 3.5 Finger Breadths Mallampati Class: II Neck neck extension not limited Respiratory normal respiratory effort; no respiratory distress Auscultation: lungs clear to auscultation bilaterally Cardiovascular Rate/Rhythm: regular rate and regular rhythm Neurologic moves all extremities Psychiatric Orientation: alert and oriented x 3 Testing Laboratory Results 02/22/22 15:59
[2022-02-22] MEDS ORDERED: CITRIC ACID/SODIUM CITRATE 15 ML UDC PO SCH (16:50)
--- NOTE | 2022-02-22 18:36 | Post Operative Brief Note ---
Immediate Post Op Note v1 Date of Surgery February 22, 2022 Pre & Post Diagnosis Operation Date: 02/22/22 16:20 Pre-Op Diagnosis: Repeat Section with Bilateral Tubal Salpingectomy at 35 1/7 weeks gestation Post-Op Diagnosis: Repeat Section with Bilateral Tubal Salpingectomy at 35 1/7 weeks gestation for a viable baby girl at 1735 I identified the patient and participated in the time-out.: Yes Procedure Operation Date: 02/22/22 16:20 Actual Procedures p Repeat Section with Bilateral Tubal Salpingectomy in LD; delivery of a viable baby girl at [address] Medina(Bilateral) - Justen Medina MD Surgeon Justen Medina MD Human Resources Records Clerk Dr. Maravilla Estimated Blood Loss 700 Findings Consistent with Post-Op Diagnosis live female Apgars 8/9 weight 5-11 Fluids LR Drains Alfaro Catheter (Inserted prior to procedure and draining clear yellow urine. Urine output monitored by anesthesia.) Anesthesia Type Spinal Complications none Overlapping Procedure I was immediately available: during the entire case. Back up surgeon: was not required during procedure.
[2022-02-22] MEDS ORDERED: HYDROCORTISONE ACETATE 25 MG SUPP PR PRN (18:41)
[2022-02-22] MEDS ORDERED: SENNA 8.6 MG TAB PO PRN (18:41)
[2022-02-22] MEDS ORDERED: DIPHTHERIA/TETANUS/PERTUSSIS 0.5 ML SYR/VIAL IM ONE (18:41)
[2022-02-22] MEDS ORDERED: BENZOCAINE 20% AER SPR 82.5 GM CAN EXT PRN (18:41)
[2022-02-22] MEDS ORDERED: MAGNESIUM HYDROXIDE SUSP 30 ML UDC PO PRN (18:41)
--- NOTE | 2022-02-22 18:58 | Anesthesiology Progress Note ---
Date of Service February 22, 2022 Anesthesia Post Procedure Vital Signs Vital Signs: Temp Pulse Resp BP Pulse Ox 02/22/22 18:56 99 02/22/22 18:56 100 H 02/22/22 18:51 99 02/22/22 18:51 86 02/22/22 18:51 77 02/22/22 18:51 110/59 L 02/22/22 18:46 96 02/22/22 18:46 77 02/22/22 18:41 99 02/22/22 18:41 81 02/22/22 18:40 80 02/22/22 18:40 114/62 02/22/22 18:36 100 02/22/22 18:36 80 02/22/22 18:35 80 02/22/22 18:35 112/56 L 02/22/22 14:23 83 133/82 02/22/22 14:19 36.7 C 83 18 133/82 Pain Intensity Lower Medial Abdomen: Pain Intensity: 6 Transfer of Care Handoff Completed per policy Notes Mental Status: alert / awake / arousable and participated in evaluation Patient Amnestic to Procedure: Yes Nausea / Vomiting: adequately controlled Pain: adequately controlled Airway Patency, RR, SpO2: stable & adequate BP & HR: stable & adequate Hydration State: stable & adequate Anesthetic Complications: no major complications apparent and Pt Satisfied with anesthetic care
[2022-02-22] MEDS ORDERED: OXYTOCIN 20 UNITS in LACTATED RINGER'S 1,000 ML IV SCH (19:45)
[2022-02-22] MEDS: SIMETHICONE 80 MG CHEW PO SCH (22:45)
[2022-02-22] MEDS: DOCUSATE SODIUM 100 MG CAP PO SCH (22:45)
[2022-02-23] MEDS: LEVOTHYROXINE SODIUM 150 MCG TABLET PO SCH (05:58)
[2022-02-23] MEDS ORDERED: CITRIC ACID/SODIUM CITRATE 15 ML UDC PO SCH (06:00)
--- NOTE | 2022-02-23 06:11 | Operative Report (OR) ---
DATE OF SURGERY: 02/22/2022. PROCEDURE: Repeat section, low segment transverse and bilateral salpingectomy. SURGEON: Justen Medina MD OUTBOARD SYSTEM OPERATOR: Lobo Maravilla MD FINDINGS: Live female, Apgars 8 and 9, weight 5 pounds 11 ounces, vertex at 35.1 weeks. ESTIMATED BLOOD LOSS: 700 mL. FLUIDS: Pending. URINE: Pending. COMPLICATIONS: None. SPECIMENS: Placenta and right and left tubes. CLINICAL HISTORY: The patient is a 36-year-old female, para 0-2-0-2 at 35.1 weeks, admitted for an e lective repeat section, who is in labor. The patient had 2 prior C-sections and saira ires elective repeat with a voluntary sterilization procedure. The patient was identified, she has g iven consent. Timeout and antibiotics were given preop. DESCRIPTION OF PROCEDURE: Under satisfactory spinal anesthesia, the patient was prepped and draped i n the usual sterile fashion. A low Pfannenstiel incision through a prior scar was then made entering into the abdominal cavity in successive layers. Upon entering into the abdominal cavity, bladder fl ap was dissected down. There were some adhesions that were noted on the upper abdomen with the oment um and these were taken down with Bovie. After bladder flap was down, a low segment transverse incis ion over the lower uterine segment was made. The incision was nicked. Amniotic fluid was clear. Th e incision was widened in the AP diameter. The infant was then delivered from the vertex presentatio n with the aid of fundal pressure by Dr. Maravilla delivering a live female. There was delayed cord clam ping, after which the cord was cut and clamped, Apgars 8 and 9, weight 5 pounds 11 ounces. Cor d blood was obtained. Placenta delivered manually and intact. No active bleeding was noted. The ut erus was exteriorized. Both ends of the uterine incision were clamped with ring forceps and the infe rior with another ring, and another ring used to dilate the cervix. Uterus was closed in a double la lobo closure using 0 Vicryl suture in a continuous interlocking fashion followed by a next layer. Tub es, ovaries bilaterally were found to be within normal limits. The initial sponge, needle, and instr ument counts were found to be correct. Both tubes were identified and lifted with Spearman clamps. U sing the handheld LigaSure device, they were removed and submitted to Pathology as a separate specime n. No active bleeding was noted. Contents of the pelvic and abdominal cavity were then irrigated to clear. Uterus was placed back into the normal anatomical position. All laps were accounted for. T he initial sponge, needle, and instrument counts were found to be correct. The muscle was reapproxim ated with 0 Vicryl suture. The fascia was then reapproximated from both ends using 0 Vicryl suture. Subcuticular layer was irrigated, bleeders were cauterized and this was then reapproximated with 3-0 plain suture and then the skin was irrigated and reapproximated with 4-0 Monocryl suture. Telfa, sp onge dressing and Steri-Strips were applied to the wound. No active bleeding was noted. The patient was stable. The final sponge, needle and instrument counts were found to be correct. The patient t aken to recovery room in stable condition. Please note Dr. Maravilla was present for the surgery. He wa s needed for abdominal retraction, help with fundal pressure, help with closure of abdomen, exposure and provide necessary retraction. Job ID: [id number]
[2022-02-23 06:30] LABS: Basophils # (auto) 0.02 K/uL (0-0.2); Basophils % (auto) 0.2 %; Eosinophils # (auto) 0.12 K/uL (0-0.50); Hematocrit (blood only) 30.3 % (34.1-44.9); Immature Granulocytes # (auto) 0.06 K/uL (0.00-0.02); Immature Granulocytes % (auto) 0.5 %; Lymphocytes # (auto) 1.06 K/uL (1.2-3.4); Lymphocytes % (auto) 8.8 %; Mean Corpuscular Hemoglobin 30.5 pg (25.0-34.0); Mean Corpuscular Volume 92.4 fL (80.0-100.0); Mean Platelet Volume 9.4 fL (9.4-12.3); Monocytes # (auto) 0.52 K/uL (0.24-0.82); Monocytes % (auto) 4.3 %; Neutrophils # (auto) 10.32 K/uL (1.4-6.5); Neutrophils % (auto) 85.2 %; Platelet Count 194 K/uL (130-400); RDW Coefficient of Variation 13.9 % (11.5-14.5); RDW Standard Deviation 46.8 fL (36.4-46.3); Red Blood Count 3.28 M/uL (3.93-5.22)
[2022-02-23] MEDS: DOCUSATE SODIUM 100 MG CAP PO SCH ×2 (08:13→19:58)
[2022-02-23] MEDS: SIMETHICONE 80 MG CHEW PO SCH ×4 (08:13→19:58)
[2022-02-23] MEDS: PRENATAL VITAMIN 1 TAB PO SCH (08:13)
[2022-02-23] MEDS: FERROUS SULFATE 325 MG TAB PO SCH (08:14)
[2022-02-23] MEDS ORDERED: NON-FORMULARY MEDICATION (Prenat.Vits,Cal,Min-Iron-Folic Tablet) PO SCH (09:00)
--- NOTE | 2022-02-23 09:36 | Obstetrical Progress Note ---
Date of Service February 23, 2022 Assessment & Plan Admission and Anticipated Discharge Date Admission Date: February 22, 2022 Subjective Patient is seen and examined. She feels well, no complaints. Pain is under control. Had not been OOB yet Carver is in. Voiding without difficulty Tolerating regular diet with out N&V Flatus neg Bleeding is minimal No fever/ chills/ CP/ SOB/ N&V/ Leg pain Breast and bottle feeding without problems Vital Signs Temp Pulse Pulse Resp BP Pulse Ox O2 Del Method 02/23/22 08:07 18 100 02/23/22 07:15 36.6 C 94 H 16 106/73 100 Room Air 02/23/22 06:10 18 100 02/23/22 05:10 18 100 02/23/22 04:00 36.7 C 95 H 18 107/72 100 Room Air 02/23/22 04:20 18 99 02/23/22 03:21 16 100 02/23/22 02:30 16 100 02/23/22 01:56 16 99 02/23/22 00:35 16 100 02/23/22 00:35 36.6 C 79 16 104/69 100 Room Air 02/22/22 23:00 16 100 02/22/22 22:00 18 97 Intake & Output 02/22/22 02/23/22 02/23/22 22:59 06:59 14:59 Intake Total 1500 / 2502 1002 / 2502 Output Total 850 / 1550 700 / 1550 Balance 650 / 952 302 / 952 Weight 101.605 kg Intake: IV 1002 / 1002 Oxytocin 20 units In Lactated 1002 / 1002 Ringer's 1,000 ml @ 125 mls/hr IV .Q8H1M [facility] Rx#:[id number] IV Perioperative 1500 / 1500 Output: Estimated Blood Loss 700 / 700 Urine Amount (Catheter) 150 / 850 700 / 850 Carver/Indwelling 150 / 850 700 / 850 Other: # Emeses 1 Lab Results 02/22/22 02/22/22 02/22/22 Range/Units 15:34 15:59 15:59 WBC 13.90 H (4.8-10.8) K/ul RBC 3.85 L (3.93-5.22) M/uL Hgb 11.8 L (12.0-16.0) g/dl Hct 35.0 (34.1-44.9) % MCV 90.9 (80.0-100.0) fL MCH 30.6 (25.0-34.0) pg MCHC 33.7 (32.0-36.0) g/dL RDW Std Deviation 45.2 (36.4-46.3) fL RDW Coeff of Nura 13.7 (11.5-14.5) % Plt Count 259 (130-400) K/uL MPV 9.7 (9.4-12.3) fL Immature Gran % (Auto) 0.4 % Neut % (Auto) 84.4 % Lymph % (Auto) 9.8 % [place] % (Auto) 4.8 % Eos % (Auto) 0.4 % Baso % (Auto) 0.2 % Neut # (Auto) 11.74 H (1.4-6.5) K/uL Lymph # (Auto) 1.36 (1.2-3.4) K/uL [place] # (Auto) 0.67 (0.24-0.82) K/uL Eos # (Auto) 0.05 (0-0.50) K/uL Baso # (Auto) 0.03 (0-0.2) K/uL Immature Gran # (Auto) 0.05 H (0.00-0.02) K/uL SARS-CoV-2, RNA, NAAT NEGATIVE (NEGATIVE) Blood Type O Positive Antibody Screen NEGATIVE 02/23/22 Range/Units 06:14 WBC 12.10 H (4.8-10.8) K/ul RBC 3.28 L (3.93-5.22) M/uL Hgb 10.0 L (12.0-16.0) g/dl Hct 30.3 L (34.1-44.9) % MCV 92.4 (80.0-100.0) fL MCH 30.5 (25.0-34.0) pg MCHC 33.0 (32.0-36.0) g/dL RDW Std Deviation 46.8 H (36.4-46.3) fL RDW Coeff of Nura 13.9 (11.5-14.5) % Plt Count 194 (130-400) K/uL MPV 9.4 (9.4-12.3) fL Immature Gran % (Auto) 0.5 % Neut % (Auto) 85.2 % Lymph % (Auto) 8.8 % [place] % (Auto) 4.3 % Eos % (Auto) 1.0 % Baso % (Auto) 0.2 % Neut # (Auto) 10.32 H (1.4-6.5) K/uL Lymph # (Auto) 1.06 L (1.2-3.4) K/uL [place] # (Auto) 0.52 (0.24-0.82) K/uL Eos # (Auto) 0.12 (0-0.50) K/uL Baso # (Auto) 0.02 (0-0.2) K/uL Immature Gran # (Auto) 0.06 H (0.00-0.02) K/uL SARS-CoV-2, RNA, NAAT (NEGATIVE) Blood Type Antibody Screen PE: General: Alert, orientedx3, NAD CVS: S1S2 RRR Lungs; CTAB Abd: soft, NT, ND, BS+, fundus firm, below Umbilicus Incision/ Dressing: Clean, dry, intact Perineum intact, Lochia rubra minimal Ext; NT, no edema AP: 36 yo s/p RC Section and BTL, pod# 1 VSS Afebrile doing well Continue routine postop care D/C carver Encourage ambulation, PO intake All questions were answered Results & Data ([facility]) Vital Signs (Past 12 Hours) Vital Signs Temp Pulse Pulse Resp BP Pulse Ox O2 Del Method 02/23/22 08:07 18 02/23/22 07:15 36.6 C 94 H 16 106/73 100 Room Air 02/23/22 06:10 18 02/23/22 05:10 18 02/23/22 04:00 36.7 C 95 H 18 107/72 100 Room Air 02/23/22 04:20 18 99 02/23/22 03:21 16 02/23/22 02:30 16 02/23/22 01:56 16 99 02/23/22 00:35 16 02/23/22 00:35 36.6 C 79 16 104/69 100 Room Air 02/22/22 23:00 16 02/22/22 22:00 18 97
[2022-02-23] MEDS ORDERED: ONDANSETRON INJ 2 MG/ML 2 ML VIAL IV PRN (10:45)
[2022-02-23] MEDS ORDERED: KETOROLAC 30 MG/ML VIAL IV PRN (10:45)
[2022-02-23] MEDS ORDERED: diphenhydrAMINE Capsule 25 MG CAP PO PRN (10:45)
[2022-02-23] MEDS ORDERED: PROMETHAZINE HCL 25 MG in SODIUM CHLORIDE 0.9% 50 ML IV PRN (10:45)
[2022-02-23] MEDS ORDERED: MEPERIDINE HCL 50 MG/ML CARP IV PRN (10:45)
[2022-02-23] MEDS ORDERED: oxyCODONE/ACETAMINOPHEN 5mg/325mg TAB PO PRN (10:45)
[2022-02-23] MEDS ORDERED: diphenhydrAMINE 50 MG/ML VIAL IV PRN (10:45)
[2022-02-23] MEDS: IBUPROFEN 600 MG TAB PO PRN (17:29)
[2022-02-23] MEDS ORDERED: bisacodyL 5 MG TABEC PO SCH (20:00)
[2022-02-24] MEDS: IBUPROFEN 600 MG TAB PO PRN ×4 (03:54→20:45)
[2022-02-24] MEDS: LEVOTHYROXINE SODIUM 150 MCG TABLET PO SCH (06:32)
[2022-02-24 07:14] LABS: Hemoglobin 10.3 g/dl (12.0-16.0)
[2022-02-24] MEDS: SIMETHICONE 80 MG CHEW PO SCH ×4 (09:19→20:45)
[2022-02-24] MEDS: DOCUSATE SODIUM 100 MG CAP PO SCH ×2 (09:19→20:45)
[2022-02-24] MEDS: FERROUS SULFATE 325 MG TAB PO SCH (09:20)
[2022-02-24] MEDS: PRENATAL VITAMIN 1 TAB PO SCH (09:20)
--- NOTE | 2022-02-24 09:38 | Obstetrical Progress Note ---
Date of Service February 24, 2022 Subjective Ambulation: ambulating normally Voiding: no voiding problems Passing Gas:: Yes Diet Tolerance:: regular diet Feeding Type:: breast feeding Current Pain Level(1-10): 0 doing well. plans for d/c Physical Exam Constitutional WD/WN, vitals as above Gastrointestinal (Abdomen) abdomen soft and non-tender. incision c/d/i Musculoskeletal Extremities: extremities normal to inspection Skin no rashes, warm and dry Neurologic patellar DTR's 2+ bilat, sensation intact Results & Data ([facility]) Vital Signs (Past 12 Hours) Vital Signs Temp Pulse Resp BP Pulse Ox O2 Del Method 02/24/22 09:21 36.4 C L 89 19 119/81 Room Air 02/24/22 03:40 36.5 C 88 18 113/74 99 Room Air Laboratory Results Laboratory Results - last 72 hr 02/22/22 02/22/22 02/22/22 15:34 15:59 15:59 WBC 13.90 H RBC 3.85 L Hgb 11.8 L Hct 35.0 MCV 90.9 MCH 30.6 MCHC 33.7 RDW Std Deviation 45.2 RDW Coeff of Nura 13.7 Plt Count 259 MPV 9.7 Immature Gran % (Auto) 0.4 Neut % (Auto) 84.4 Lymph % (Auto) 9.8 [place]inger % (Auto) 4.8 Eos % (Auto) 0.4 Baso % (Auto) 0.2 Neut # (Auto) 11.74 H Lymph # (Auto) 1.36 Grainger # (Auto) 0.67 Eos # (Auto) 0.05 Baso # (Auto) 0.03 Immature Gran # (Auto) 0.05 H SARS-CoV-2, RNA, NAAT NEGATIVE Blood Type O Positive Antibody Screen NEGATIVE 02/23/22 02/24/22 06:14 07:00 WBC 12.10 H RBC 3.28 L Hgb 10.0 L 10.3 L Hct 30.3 L 32.0 L MCV 92.4 MCH 30.5 MCHC 33.0 RDW Std Deviation 46.8 H RDW Coeff of Nura 13.9 Plt Count 194 MPV 9.4 Immature Gran % (Auto) 0.5 Neut % (Auto) 85.2 Lymph % (Auto) 8.8 Grainger % (Auto) 4.3 Eos % (Auto) 1.0 Baso % (Auto) 0.2 Neut # (Auto) 10.32 H Lymph # (Auto) 1.06 L Grainger # (Auto) 0.52 Eos # (Auto) 0.12 Baso # (Auto) 0.02 Immature Gran # (Auto) 0.06 H SARS-CoV-2, RNA, NAAT Blood Type Antibody Screen
[2022-02-24] MEDS ORDERED: bisacodyL 10 MG SUPP PR PRN (18:38)
[2022-02-25] MEDS: IBUPROFEN 600 MG TAB PO PRN ×2 (05:56→11:01)
[2022-02-25] MEDS: LEVOTHYROXINE SODIUM 150 MCG TABLET PO SCH (05:56)
--- NOTE | 2022-02-25 08:52 | Obstetrical Progress Note ---
Date of Service February 25, 2022 Assessment & Plan Admission and Anticipated Discharge Date Admission Date: February 22, 2022 Subjective Patient is seen and examined. She feels well, no complaints. Pain is under control with oral meds. Ambulating without dizzinesss Voiding without difficulty Tolerating regular diet with out N&V Flatus + BM neg Bleeding is minimal No fever/ chills/ CP/ SOB/ N&V/ Leg pain Breast and bottle feeding without problems Vital Signs Temp Pulse Resp BP O2 Del Method 02/24/22 23:41 36.3 C L 86 16 110/72 Room Air 02/24/22 20:00 36.4 C L 88 16 114/75 Room Air 02/24/22 15:09 36.4 C L 86 21 115/79 Room Air 02/24/22 09:21 36.4 C L 89 19 119/81 Room Air Lab Results 02/22/22 02/22/22 02/22/22 Range/Units 15:34 15:59 15:59 WBC 13.90 H (4.8-10.8) K/ul RBC 3.85 L (3.93-5.22) M/uL Hgb 11.8 L (12.0-16.0) g/dl Hct 35.0 (34.1-44.9) % MCV 90.9 (80.0-100.0) fL MCH 30.6 (25.0-34.0) pg MCHC 33.7 (32.0-36.0) g/dL RDW Std Deviation 45.2 (36.4-46.3) fL RDW Coeff of Nura 13.7 (11.5-14.5) % Plt Count 259 (130-400) K/uL MPV 9.7 (9.4-12.3) fL Immature Gran % (Auto) 0.4 % Neut % (Auto) 84.4 % Lymph % (Auto) 9.8 % [place] % (Auto) 4.8 % Eos % (Auto) 0.4 % Baso % (Auto) 0.2 % Neut # (Auto) 11.74 H (1.4-6.5) K/uL Lymph # (Auto) 1.36 (1.2-3.4) K/uL [place] # (Auto) 0.67 (0.24-0.82) K/uL Eos # (Auto) 0.05 (0-0.50) K/uL Baso # (Auto) 0.03 (0-0.2) K/uL Immature Gran # (Auto) 0.05 H (0.00-0.02) K/uL SARS-CoV-2, RNA, NAAT NEGATIVE (NEGATIVE) Blood Type O Positive Antibody Screen NEGATIVE 02/23/22 02/24/22 Range/Units 06:14 07:00 WBC 12.10 H (4.8-10.8) K/ul RBC 3.28 L (3.93-5.22) M/uL Hgb 10.0 L 10.3 L (12.0-16.0) g/dl Hct 30.3 L 32.0 L (34.1-44.9) % MCV 92.4 (80.0-100.0) fL MCH 30.5 (25.0-34.0) pg MCHC 33.0 (32.0-36.0) g/dL RDW Std Deviation 46.8 H (36.4-46.3) fL RDW Coeff of Nura 13.9 (11.5-14.5) % Plt Count 194 (130-400) K/uL MPV 9.4 (9.4-12.3) fL Immature Gran % (Auto) 0.5 % Neut % (Auto) 85.2 % Lymph % (Auto) 8.8 % [place] % (Auto) 4.3 % Eos % (Auto) 1.0 % Baso % (Auto) 0.2 % Neut # (Auto) 10.32 H (1.4-6.5) K/uL Lymph # (Auto) 1.06 L (1.2-3.4) K/uL [place] # (Auto) 0.52 (0.24-0.82) K/uL Eos # (Auto) 0.12 (0-0.50) K/uL Baso # (Auto) 0.02 (0-0.2) K/uL Immature Gran # (Auto) 0.06 H (0.00-0.02) K/uL SARS-CoV-2, RNA, NAAT (NEGATIVE) Blood Type Antibody Screen PE: General: Alert, orientedx3, NAD CVS: S1S2 RRR Lungs; CTAB Abd: soft, NT, ND, BS+, fundus firm, below Umbilicus Incision: Clean, dry, intact Perineum intact, Lochia rubra minimal Ext; NT, no edema AP: 36 yo s/p C Section, pod# 3 VSS Afebrile doing well Continue routine postop care Encourage ambulation, PO intake All questions were answered D/C home . f/u in office Results & Data ([facility]) Vital Signs (Past 12 Hours) Vital Signs Temp Pulse Resp BP O2 Del Method 02/24/22 23:41 36.3 C L 86 16 110/72 Room Air
[2022-02-25] MEDS: SIMETHICONE 80 MG CHEW PO SCH (09:24)
[2022-02-25] MEDS: DOCUSATE SODIUM 100 MG CAP PO SCH (09:25)
[2022-02-25] MEDS: FERROUS SULFATE 325 MG TAB PO SCH (09:25)
[2022-02-25] MEDS: PRENATAL VITAMIN 1 TAB PO SCH (09:25)
== END 2022-02-25 11:30 | disposition home or self-care (01) | DRG 785 ==
LOC: OPB 13:58 → 4S1 13:59 → 4E2 21:17